=== PATIENT | female | born 1950 | race Caucasian/White ===

== ENCOUNTER 2022-03-30 08:47 | Outpatient (CLI) | payer OTHER | END 2022-03-30 08:48 | disposition home or self-care (01) | LOC: SONOGRAMA 08:47 | PROVIDERS: ATTEND Pathology Anatomic Pathology | DX: D34 Benign neoplasm of thyroid gland (principal); E07.9 Disorder of thyroid, unspecified; E04.1 Nontoxic single thyroid nodule ==